=== PATIENT | male | born 1965 | race Caucasian/White ===

== ENCOUNTER 2016-10-09 20:31 | Emergency (ER) | payer OTHER ==
[~2016-10-09] VITALS: Ht 180.3 cm; Wt 90.9 kg
[2016-10-09 20:32] VITALS: TEMP 97.8
[2016-10-09 21:42] VITALS: BP 149/83; PULSE 85
== END 2016-10-09 21:43 | disposition home or self-care (01) ==
LOC: COL.ER 20:31
DX: S05.01XA Injury of conjunctiva and corneal abrasion without foreign body, right eye, initial encounter (principal); X58.XXXA Exposure to other specified factors, initial encounter; Y92.009 Unspecified place in unspecified non-institutional (private) residence as the place of occurrence of the external cause